=== PATIENT | female | born 1980 | race African-American/Black ===

== ENCOUNTER 2019-04-29 11:56 | Emergency (ER) | payer MEDICAID ==
[~2019-04-29] VITALS: Ht 170.2 cm; Wt 61.2 kg
--- NOTE | 2019-04-29 12:17 | NUR ---
patient walking to er report right calf dog bite.
[2019-04-29] MEDS ORDERED: TDAP DIPH,PERTUSS,TET VAC/PF 0.5 ML DISP.SYRIN IM ONE ×2 (12:45→13:09)
[2019-04-29] MEDS ORDERED: AMOXICILLIN-CLAVUL 875-125MG TABLET PO ONE (12:45)
[2019-04-29] MEDS ORDERED: AMOXICILLIN-CLAVUL 875-125MG TABLET ONE (13:08)
[2019-04-29 13:33] VITALS: BP 118/70
--- NOTE | 2019-04-29 13:34 | NUR ---
patient alert, oriented x4 tolerated po intake well, no reactions from antibiotic and Tdap crutches given d/c home with family after care reviewed understood.
== END 2019-04-29 14:17 | disposition home or self-care (01) ==
LOC: ER 12:00
DX: S81.851A Open bite, right lower leg, initial encounter (principal); W54.0XXA Bitten by dog, initial encounter; Y93.89 Activity, other specified; Y92.89 Other specified places as the place of occurrence of the external cause; Y99.8 Other external cause status
CPT/HCPCS: 90715; A4663